=== PATIENT | female | born 1980 | race Native Hawaiian/Other Pacific Islander ===

== ENCOUNTER 2017-12-08 08:32 | Outpatient (CLI) | payer BC ==
--- NOTE | 2017-12-08 11:04 | Ultrasound Report ---
Limited abdominal ultrasound: Elevated LFTs. The liver is echogenic. It is unclear as to whether it may be slightly enlarged. There is no focal finding. The gallbladder has been removed. The CBD diameter is 2.7 mm. The body and head of the pancreas appear grossly normal but not optimally visualized. The tail was not visualized. The right renal length is 9.8 cm. The kidney is echogenically unremarkable. The transverse diameter of the proximal abdominal aorta is under 2 cm. Impression: Fatty liver.
== END 2017-12-08 08:33 | disposition home or self-care (01) ==
LOC: SPVWC 08:32
PROVIDERS: ATTEND Internal Medicine
DX: K76.0 Fatty (change of) liver, not elsewhere classified (principal); R79.89 Other specified abnormal findings of blood chemistry; Z90.49 Acquired absence of other specified parts of digestive tract
CPT/HCPCS: 76705

== ENCOUNTER 2018-04-07 09:36 | Outpatient (CLI) | payer BC | END 2018-04-07 09:37 | disposition home or self-care (01) | LOC: VAS 09:36 | PROVIDERS: ATTEND Internal Medicine | DX: M79.89 Other specified soft tissue disorders (principal); M79.661 Pain in right lower leg ==